=== PATIENT | male | born 1970 | race Caucasian/White ===

== ENCOUNTER 2016-10-11 03:45 | Emergency (ER) | payer OTHER ==
[~2016-10-11 03:45] MED LIST: ALBUTEROL17 GM INH; ALBUTEROL20 ml INH; AMOXICILLIN PO; ANTIDEPRESSANT; BACTRIM DS TABL1 TA1 PO; BENZONATATE PO; BUSPAR PO; BUSPAR15 MG PO; DENTAL BALLS; DESYREL100 MG PO; GEODAN PO; HUMAPEN LUXURA1 BOX; HUMIBID CS TABL1 TAB PO; LANTUS100 U/ML INJ; LANTUS100 UNITS/ SUBQ; LEVAMIR SUBQ; LEVEMIR SUBQ; LISINOPRIL5 MG PO; LITHIUM PO; MIRALAX255 GM PO; MOBIC PO; MONODOX100 MG PO; NEURONTIN100 MG; NOVOLIN N100 U/M1 SQ; NOVOLIN N100 U/ML INJ; NOVOLIN N100 UNIT/1 SUBQ; NOVOLIN R100 U/ML INJ; NOVOLOG100 U/M1; NOVOLOG100 U/M2; NOVOLOG100 U/ML; PEN-VEE K PO; PENICILLIN V P500 MG PO; PHENERGAN W/CO120 ML PO; PRINIVIL5 MG PO; ROBITUSSIN A-C-S1 ML PO; ROBITUSSIN A-C10 ML PO; TAMIFLU75 M1 PO; TRAZODONE PO; ULTRAM PO; VIBRAMYCIN100 M1 PO; VICODIN 5/1 TAB 5/50 PO; VICODIN 5/500 T1 TAB PO; VICODIN PO; VOLTAREN75 MG PO; ZITHROMAX PO; ZITHROMAX1 G/PKT PO; ZYRTEC-D T1 TAB.SR . PO
== END 2016-10-11 04:29 | disposition home or self-care (01) ==
LOC: SED 03:45
DX: S51.812A Laceration without foreign body of left forearm, initial encounter (principal); F10.129 Alcohol abuse with intoxication, unspecified; E11.9 Type 2 diabetes mellitus without complications; W25.XXXA Contact with sharp glass, initial encounter; Y92.009 Unspecified place in unspecified non-institutional (private) residence as the place of occurrence of the external cause
CPT/HCPCS: 82947; 90715; 99283

== ENCOUNTER 2016-11-26 17:41 | Emergency (ER) | payer OTHER ==
--- NOTE | ~2016-11-26 | CR127 ---
[facility] A Service of [facility] RADIOLOGY TEXT RESULTS PATIENT: GIL CRUZ LOCATION: SED : 68 UNIT #: [id number] AGE: [address]: Lilliana Aranda APRN SEX: M ORDER DR: [id number] [place] [id number] [id number] E MR#: [id number] Acc #: [id number] NAME: GIL CRUZ : 1970 SEX: M STUDY DATE/TIME: 11/26/2016 17:39 UNIT: SED ROOM: STUDY DESCRIPTION: CR Foot Complete Min 3 View Rt Attending Physician: Lilliana Aranda A.P.R.N. Ordering Physician: Lilliana Aranda A.P.R.N. Primary Care Physician: Alex Sarabia M.D. MEDICAL IMAGING REPORT This report is preliminary unless electronic signature is present. EXAM Right foot 11/26/2016 HISTORY Pain and redness to top of right first digit started yesterday after patient kicked a bucket. COMMENT 3 views of the right foot are reviewed. FINDINGS There is a fracture at the base of the distal phalanx laterally which is predominately obliquely oriented extending into the articular surface of the interphalangeal joint. It appears relatively age indeterminate but is probably acute in light of the history provided. There is associated soft tissue swelling. There is no dislocation. Please correlate with the site of tenderness on physical exam. No additional fracture, dislocation or possible radiopaque foreign body is appreciated. IMPRESSION The findings are most concerning for a nondisplaced fracture at the lateral base of the distal phalanx first digit right foot with intraarticular extension. Please correlate with site tenderness clinically and see discussion above. STAT * RESULT Dictated by... Aruna Golden M.D. [facility] A Service of [facility] RADIOLOGY TEXT RESULTS PATIENT: GIL CRUZ LOCATION: SED : 68 UNIT #: [id number] AGE: [address]: Lilliana Aranda APRN SEX: M ORDER DR: THIS IS AN ELECTRONICALLY VERIFIED REPORT Aruna Golden M.D. at 11/26/2016 8:07 PM Trey TD: 11/26/2016 18:10 JOB #: [id number] MEDICAL IMAGING REPORT Page 1 of 1
== END 2016-11-26 18:46 | disposition home or self-care (01) ==
LOC: SED 17:41
DX: S92.424A Nondisplaced fracture of distal phalanx of right great toe, initial encounter for closed fracture (principal); E11.9 Type 2 diabetes mellitus without complications; Z79.4 Long term (current) use of insulin; F17.200 Nicotine dependence, unspecified, uncomplicated; F31.9 Bipolar disorder, unspecified; Z79.899 Other long term (current) drug therapy; W22.8XXA Striking against or struck by other objects, initial encounter; Y92.009 Unspecified place in unspecified non-institutional (private) residence as the place of occurrence of the external cause
CPT/HCPCS: 29515; 73630; 99283

== ENCOUNTER 2017-02-27 00:17 | Emergency (ER) | payer OTHER ==
[~2017-02-27] VITALS: Ht 177.8 cm; Wt 59.0 kg
== END 2017-02-27 01:15 | disposition home or self-care (01) ==
LOC: CED 00:17
DX: E10.649 Type 1 diabetes mellitus with hypoglycemia without coma (principal); R41.82 Altered mental status, unspecified; F17.200 Nicotine dependence, unspecified, uncomplicated; F31.9 Bipolar disorder, unspecified; F90.9 Attention-deficit hyperactivity disorder, unspecified type; Z98.890 Other specified postprocedural states
CPT/HCPCS: 82947; 96374; 99285